=== PATIENT | male | born 1975 | race Caucasian/White ===

== ENCOUNTER 2016-08-30 10:50 | Inpatient (IN) | payer OTHER ==
[~2016-08-30] VITALS: Ht 180.3 cm; Wt 109.3 kg
[~2016-08-30 10:50] MED LIST: DILANTIN100 MG PO; NAPROSYN500 MG PO
[2016-08-30 11:23] LABS: EOSINOPHIL (%) 0.2 % (0-5); HEMATOCRIT 46.7 % (38.0-50.0); IMMATURE GRANULOCYTE (%) 0.6 % (0.0-0.7); INSTRUMENT ABS NEUTROPHIL CT 3.5 K/uL; LYMPHOCYTE COUNT 1.2 K/uL (1.0-2.8); MCH 28.9 PG (29.0-34.0); MCHC 34.5 G/DL (30.0-36.0); MCV 83.7 FL (86-99); MEAN PLAT.VOLUME 8.5 uM^3 (9.0-12.4); MONOCYTE (%) 10.2 % (3-12); MONOCYTE COUNT 0.6 K/uL (0-0.8); NEUTROPHIL (%) 65.4 % (45-76); NEUTROPHIL COUNT 3.5 K/uL (1.8-6.4); PLATELET COUNT 269 K/uL (156-360); RBC DIS.WIDTH-CV 12.4 % (11.8-14.6); RBC DIS.WIDTH-SD 37.9 % (39-53); RED BLOOD COUNT 5.58 M/uL (4.00-5.50); WHITE BLOOD COUNT 5.4 K/uL (4.1-10.2)
[2016-08-30 11:31] LABS: CHLORIDE 108 mEq/L (99-109); SODIUM 140 mEq/L (136-147)
[2016-08-30 11:33] LABS: GLUCOSE 91 mg/dL (70-99)
[2016-08-30 11:34] LABS: ANION GAP 7 MEQ/L (2-14)
[2016-08-30 11:36] LABS: GFR ESTIMATE (CALCULATED) > 59 mL/min/; SERUM ETHYL ALCOHOL < 10 mg/dL
[2016-08-30 11:37] LABS: UREA NITROGEN (BUN) 12 mg/dL (9-23)
[2016-08-30 12:25] LABS: ADD MIUA? NO; BILIRUBIN NEGATIVE; BLOOD NEGATIVE; COLOR YELLOW ((YELLOW)); GLUCOSE (STRIP) NEGATIVE; KETONES NEGATIVE; LEUKOCYTES NEGATIVE; NITRITE NEGATIVE; PROTEIN (STRIP) NEGATIVE; UROBILINOGEN 0.2 MG/DL (0.2-1.0)
[2016-08-30 12:35] LABS: AMPHETAMINE NEGATIVE (500 ng/mL); BARBITURATES PRESUMPTIVE POSITIVE (200 ng/mL); BENZODIAZEPINES NEGATIVE (150 ng/mL); COCAINE NEGATIVE (150 ng/mL); INTERNAL CONTROLS VALID? YES; METHADONE NEGATIVE (200 ng/mL); METHAMPHETAMINE NEGATIVE (500 ng/mL); OPIATES (MORPHINE) NEGATIVE (100 ng/mL); OXYCODONE NEGATIVE (100 ng/mL); PHENCYCLIDINE NEGATIVE (25 ng/mL); PROPOXYPHENE NEGATIVE (300 ng/mL); THC CANNABINOIDS NEGATIVE (50 ng/mL); TRICYCLIC ANTIDEPRESSANTS NEGATIVE (300 ng/mL)
[2016-08-30 12:36] LABS: ADD MEDTOX COMMENT Y
[2016-08-30] MEDS ORDERED: DICLOFENAC SOD100 MG PO (12:58)
[2016-08-30 13:11] LABS: BARBITUATES QUANT VALUE 0 NG/ML
[2016-08-30 16:22] VITALS: BP 134/84
[2016-08-31 07:31] VITALS: BP 132/87
[2016-08-31 15:31] VITALS: BP 120/82
[2016-09-01 07:42] VITALS: BP 138/81
[2016-09-01] MEDS ORDERED: BUSPAR10 MG PO (09:26)
[2016-09-01] MEDS ORDERED: SERTRALINE HCL50 MG PO (09:26)
== END 2016-09-01 11:40 | disposition home or self-care (01) | DRG 881 ==
LOC: EME 10:50 → EDOF 12:46 → 1WEST 12:46
PROVIDERS: Emergency Medicine; Psychiatry & Neurology Psychiatry
DX: F32.9 Major depressive disorder, single episode, unspecified (principal); F41.9 Anxiety disorder, unspecified; F17.200 Nicotine dependence, unspecified, uncomplicated; R45.851 Suicidal ideations
CPT/HCPCS: 80048; 80185; 81003; 84443; 84999; 85025; 90837; 99281; 99285; G0480